=== PATIENT | male | born 1980 | race Caucasian/White ===

== ENCOUNTER → 2018-10-14 | Outpatient (CLI) | payer OTHER ==
[~2018-10-14] MED LIST: GADOBUTROL 1 MMOL/ML 10 ML VIAL IVP ONE
== END | disposition home or self-care (01) ==
LOC: RADPV 09:29
PROVIDERS: ATTEND Family Medicine
DX: I86.1 Scrotal varices (principal); M25.852 Other specified joint disorders, left hip; M76.02 Gluteal tendinitis, left hip; N42.83 Cyst of prostate; M76.9 Unspecified enthesopathy, lower limb, excluding foot
CPT/HCPCS: 72197; 76870; A9585